=== PATIENT | female | born 2000 | race African-American/Black ===

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

== ENCOUNTER 2021-01-23 22:31 | Emergency (ER) | payer OTHER ==
[2021-01-23] MEDS ORDERED: Ketorolac Tromethamine 30 MG/ML VIAL ONE (23:10)
[2021-01-23] MEDS ORDERED: Ondansetron ODT 4 MG TAB ONE (23:10)
[2021-01-23 23:31] LABS: Pregnancy Test - Urine (BHCG) Negative (Negative); Pregu Control Background? CLEAR/WHITE (CLR/WHITE); Pregu Control Bar Appear? YES (CONTROL BAR)
[2021-01-23 23:33] LABS: Bilirubin Negative (Negative); Blood, Urine Negative (Negative); Clarity Turbid (Clear); Glucose, Urine (Dipstick) Normal (Negative); Ketone, Urine Negative (Negative); Leukocyte 250 Leu/uL (Negative); Nitrite Negative (Negative); Protein, Urine (Dipstick) Negative (Neg-Trace); RBC/HPF 0-3 HPF (0-3); Specific Gravity, Urine 1.012 (1.002-1.036); Urobilinogen Normal mg/dL (Less than 2); pH, Urine 6.5 (5.0-9.0)
[2021-01-23 23:34] LABS: Specific Gravity 1.012 (1.002-1.036)
[2021-01-23 23:59] LABS: Bacteria/HPF 1+ HPF (None Seen)
== END 2021-01-24 00:52 | disposition home or self-care (01) ==
LOC: ERS 22:31
DX: R51.9 Headache, unspecified (principal); M62.838 Other muscle spasm
CPT/HCPCS: 81003; 81015; 81025; 96372; 99284; J1885; Q0162